=== PATIENT | male | born 1950 | race Caucasian/White ===

== ENCOUNTER 2019-03-03 17:30 | Inpatient (IN) | payer OTHER ==
[2019-03-03] MEDS ORDERED: SODIUM CHLORIDE 500 ML IV STA (18:10)
[2019-03-03 18:58] LABS: BASO % 1.1 % (0-2.0); EOS % 2.2 % (0-4.5); HEMATOCRIT 50.1 % (35.4-49); HEMOGLOBIN 16.7 GM/dl (11.7-16.9); LYMPH % 22.4 % (8-40); MCH 30.6 pg (25.7-33.7); MCHC 33.3 g/dl (32.0-35.9); MEAN CELL VOLUME 92.1 fl (80-96); MONO % 6.7 % (3.8-10.2); NEUT % 67.6 % (42.8-82.8); PLATELET COUNT 200 K/MM3 (134-434); RBC 5.44 M/mm3 (4.00-5.60); RDW 12.7 % (11.9-15.9); WHITE BLOOD COUNT 8.9 K/mm3 (4.0-10.8)
--- NOTE | 2019-03-03 19:01 | PDOC ---
Documentation entered by Clarence Escobedo SCRIBE, acting as scribe for Kamala Mancuso DO. Kamala Mancuso DO: This documentation has been prepared by the Gregg hillman Daniel, SCRIBE, under my direction and personally reviewed by me in its entirety. I confirm that the documentation accurately reflects all work, treatment, procedures, and medical decision making performed by me. History of Present Illness - General Stated Complaint: FEELS GAIT UNSTEADY History Source: Patient Exam Limitations: No Limitations - History of Present Illness Initial Comments: 03/03/19 18:14 The patient is a 68 year old male with a past medical history of HTN and HLD here today for evaluation of unsteady gait. The patient reports that he has had an unsteady gait for about 1 day and notes that when he went to get out of a chair yesterday he was leaning to the right. He reports that he fell this morning after missing a step and landed on his side without hitting his head. The patient saw Dr. Allen today who sent him down to the ER for further evaluation. Patient denies headache, lightheadedness. Denies fever, chills. Denies chest pain, shortness of breath. Denies nausea, vomiting, diarrhea, abdominal pain. Allergies: NKA PCP: Alfonso Vidal tPA Exclusion checklist 3-4.5h - Time Elapsed Date last known well: 03/02/19 Time last known well: 07:00 Elaspsed time: 1 Day(s) and 12 Hour(s) and 1 Minutes - Thrombolytic Therapy Candidate Is patient eligible for thrombolytic therapy: No - Ineligibility reason(s) Reasons No tPA given: Outside of window - delayed arrival (24 hours of symptoms) NIH Stroke Scale - Last Known Well Date/Time & Onset Date Last Known Well: 03/02/19 Time Last Known Well: 07:00 - Initial Evaluation Level of consciousness: Alert Ask patient the month and their age: Answers both correctly Ask patient to open & close eyes; make fist and let go: Obeys both correctly Best gaze (horizontal eye movement): Normal Visual field testing: No visual field loss Facial paresis (Show teeth/raise eyebrows/close eyes tight): Normal symmetrical movement Motor Function: Left Arm: Normal Motor Function: Right Arm: Drift Motor Function: Left Leg: Normal (extends leg 30 degrees for 5 seconds without drift) Motor Function: Right Leg: Normal (extends leg 30 degrees for 5 seconds without drift) Limb Ataxia: Present in one limb Sensory(Use pinprick test arms,legs,trunk,face/side to side): Normal Best language (Describe picture, name items, read sentences): No Aphasia Dysarthria (read several words): Normal articulation Extinction and Inattention: No abnormality - Total Score NIH Stroke Scale Score: 2 Past History - Past Medical History Allergies/Adverse Reactions: Allergies Allergy/AdvReac Type Severity Reaction Status Date / Time No Known Allergies Allergy Verified 03/03/19 17:32 Home Medications: Ambulatory Orders NK [No Known Home Medication] 03/03/19 Anemia: No Asthma: No Cancer: No Cardiac Disorders: No CVA: No COPD: No CHF: No Dementia: No Diabetes: No GI Disorders: No Disorders: No HTN: No Hypercholesterolemia: No Liver Disease: No Seizures: No Thyroid Disease: No - Surgical History Abdominal Surgery: Yes Appendectomy: Yes Cardiac Surgery: No Cholecystectomy: No Lung Surgery: No Neurologic Surgery: No Orthopedic Surgery: No - Psycho Social/Smoking Cessation Hx Smoking Status: No Smoking History: Never smoked Have you smoked in the past 12 months: No Number of Cigarettes Smoked Daily: 0 Hx Alcohol Use: Yes (RARE) Drug/Substance Use Hx: No Substance Use Type: Alcohol Hx Substance Use Treatment: No Review of Systems - Review of Systems Able to Perform ROS?: Yes Comments:: 03/03/19 18:15 GENERAL/CONSTITUTIONAL: No fever or chills. No weakness. HEAD, EYES, EARS, NOSE AND THROAT: No change in vision. No ear pain or discharge. No sore throat. GASTROINTESTINAL: No nausea, vomiting, diarrhea or constipation. GENITOURINARY: No dysuria, frequency, or change in urination. CARDIOVASCULAR: No chest pain or shortness of breath. RESPIRATORY: No cough, wheezing, or hemoptysis. MUSCULOSKELETAL: No joint or muscle swelling or pain. No neck or back pain. SKIN: No rash NEUROLOGIC: +unsteady gait. No headache, vertigo, loss of consciousness, or change in strength/sensation. ENDOCRINE: No increased thirst. No abnormal weight change. HEMATOLOGIC/LYMPHATIC: No anemia, easy bleeding, or history of blood clots. ALLERGIC/IMMUNOLOGIC: No hives or skin allergy. *Physical Exam - Vital Signs Last Vital Signs Temp Pulse Resp BP Pulse Ox 97.9 F 62 18 189/87 H 99 03/03/19 17:30 03/03/19 17:30 03/03/19 17:30 03/03/19 17:30 03/03/19 17:30 - Physical Exam 03/03/19 18:16 Constitutional: Awake, alert, oriented. No acute distress. Head: Normocephalic. Atraumatic Eyes: PERRL. EOMI. Conjunctivae are not pale. ENT: Mucous membranes are moist and intact. Posterior pharynx without exudates or erythema. Uvula midline. Neck: Supple. Full ROM. No lymphadenopathy. Cardiovascular: Regular rate. Regular rhythm. S1, S2 regular. Distal pulses are 2+ and symmetric. Pulmonary/Chest: No evidence of respiratory distress. Clear to auscultation bilaterally No wheezing, rales or rhonchi. Abdominal: Soft and non-distended. There is no tenderness. No rebound, guarding or rigidity. No organomegaly. No palpable masses. Good bowel sounds. Back: No CVA tenderness. Musculoskeletal: No edema. No cyanosis. No clubbing. Full range of motion in all extremities. Nocalf tenderness. Radial/pedal pulses are intact and 2+ bilaterally Skin: Skin is warm and dry. No petechiae. No purpura. Neurological: +unsteady right finger to nose. +shuffling gait on right side. + slight right hand weakness but rest of right upper extremity has normal strength. Normal heel to prieto. Alert and oriented to person, place, and time. Cranial nerves II-XII are grossly intact. Normal speech. No sensory deficits. Psychiatric: Good eye contact. Normal interaction, affect and behavior. Heart Score/ECG Review - ECG Intrepretation Comment:: 03/03/19 18:55 sinus at 60, lvh, incomplete RBBB, poor r wave progression, q waves anteroseptally which are age indeterminate, q waves inferior leads which are age indeterminate, unchanged from prior ED Treatment Course - LABORATORY CBC & Chemistry Diagram: 03/03/19 18:30 - RADIOLOGY Radiology Studies Ordered: Category Date Time Status HEAD CT (STROKE) [CT] Stat CT Scan 03/03/19 18:11 Completed CHEST PA & LAT [RAD] Stat Radiology 03/03/19 18:10 Ordered Medical Decision Making - Medical Decision Making 03/03/19 18:56 I, Dr. Kamala Mancuso, DO, attest that this document has been prepared under my direction and personally reviewed by me in its entirety. I further attest, that it accurately reflects all work, treatment, procedures and medical decision -making performed by me. a/p: 68yo male with hx of htn, hld, bph, ibs presents with 24 hours of feeling off balance when walking -pt states leaning towards the Right yesterday when walking, brushing his arm along the wall -coordination off today -seen by Dr. Allen and sent in for poss cva -pt denies cp/sob -pt with R hand weakness, R arm uncoordinated, abnl finger to nose, and abnl gait, shuffles with the R foot -will send for ct head, cva workup -pt will need to be admitted for neuro eval and MRI imaging if head ct neg -no tpa given delay in presentation 03/03/19 19:[address] neg will call neuro labs pending case discussed with cristiano trejo - accepts pt to service for cva workup 03/03/19 19:[address] George who agrees with ASA, MRI brain, echo, cva workup Discharge - Discharge Information Problems reviewed: Yes Clinical Impression/Diagnosis: Limb ataxia Condition: Fair - Admission Yes - Follow up/Referral Referrals: Alfonso Vidal MD [Primary Care Provider] - - Patient Discharge Instructions - Post Discharge Activity
[2019-03-03] MEDS ORDERED: ASPIRIN 81 MG CHEWABLE TABLETS PO ONE (19:07)
[2019-03-03] MEDS ORDERED: ASPIRIN 81 MG CHEWABLE TABLETS ONE (19:10)
[2019-03-03 19:13] LABS: ACTIVATED PTT 35.3 SECONDS (25.2-36.5)
[2019-03-03 19:17] LABS: ALBUMIN 4.2 g/dl (3.4-5.0); BILIRUBIN,TOTAL 1.3 mg/dl (0.2-1); CALCIUM 9.3 mg/dl (8.5-10); MAGNESIUM 2.1 mg/dL (1.8-2.4); POTASSIUM 4.2 mmol/L (3.5-5.1); TOT PROT 7.4 g/dl (6.4-8.2)
[2019-03-03 19:18] LABS: INR 1.15 (0.82-1.09); PROTHROMBIN TIME (PATIENT) 12.8 SEC (10.2-13.0)
[2019-03-03 19:21] LABS: CHOLESTEROL 199 mg/dl (50-200); HDL CHOLESTEROL 47 mg/dl (40-60); LDL CHOLESTEROL (ONLY DFH) 138 mg/dl (5-100); TRIGLYCERIDES 70 mg/dl (0-150)
--- NOTE | 2019-03-03 20:06 | HP ---
CHIEF COMPLAINT: Unsteady gait PCP: Dr. Giraldo (previously Outen) HISTORY OF PRESENT ILLNESS: 68 year-old male with a PMH significant for HTN, HLD, IBS, and BPH. Presented to the ED for evaluation of unsteady gait. Patient reports his first episode of being unsteady was in November. He felt dizzy for a short period of time, cannot give any further details. The second episode was on February 22 when he was walking his dog. The dog pulled on him and he was unable to control his walking. The third episode started two days ago. He was unsteady walking, leaning toward the right, brushing up against the wall. Today he went to see Dr. Tiffany ontiveros who referred him to the ED. ER course was notable for: (1) BP 189/87 (2) CT head: no acute process Recent Travel: No PAST MEDICAL HISTORY: Hypertension Hyperlipidemia Irritable bowel syndrome BPH PAST SURGICAL HISTORY: Appendectomy 2011 Social History: Smoking: never Alcohol: rare Drugs: no Allergies No Known Allergies Allergy (Verified 03/03/19 17:32) HOME MEDICATIONS: Home Medications Medication Instructions Recorded NK [No Known Home Medication] 03/03/19 REVIEW OF SYSTEMS CONSTITUTIONAL: Absent: fever, chills, diaphoresis, generalized weakness, malaise, loss of appetite, weight change HEENT: Absent: rhinorrhea, nasal congestion, throat pain, throat swelling, difficulty swallowing, mouth swelling, ear pain, eye pain, visual changes CARDIOVASCULAR: Absent: chest pain, syncope, palpitations, irregular heart rate, lightheadedness , peripheral edema RESPIRATORY: Absent: cough, shortness of breath, dyspnea with exertion, orthopnea, wheezing, stridor, hemoptysis GASTROINTESTINAL: Absent: abdominal pain, abdominal distension, nausea, vomiting, diarrhea, constipation, melena, hematochezia GENITOURINARY: Absent: dysuria, frequency, urgency, hesitancy, hematuria, flank pain, genital pain MUSCULOSKELETAL: Absent: myalgia, arthralgia, joint swelling, back pain, neck pain SKIN: Absent: rash, itching, pallor HEMATOLOGIC/IMMUNOLOGIC: Absent: easy bleeding, easy bruising, lymphadenopathy, frequent infections ENDOCRINE: Absent: unexplained weight gain, unexplained weight loss, heat intolerance, cold intolerance NEUROLOGIC: +unsteady gait Absent: headache, focal weakness or paresthesias, dizziness, seizure, mental status changes, bladder or bowel incontinence PSYCHIATRIC: Absent: anxiety, depression, suicidal or homicidal ideation, hallucinations. PHYSICAL EXAMINATION Vital Signs - 24 hr 03/03/19 03/03/19 17:30 18:59 Temperature 97.9 F Pulse Rate 62 Pulse Rate [ 58 L Left Apical] Respiratory 18 18 Rate Blood Pressure 189/87 H Blood Pressure 157/99 [Right Arm] O2 Sat by Pulse 99 99 Oximetry (%) GENERAL/NEURO: Awake, alert, and fully oriented, in no acute distress. Right facial droop, right lid lag, speech slightly slurred, right arm drift LUNGS: Breath sounds equal, clear to auscultation bilaterally. No wheezes, and no crackles. No accessory muscle use. HEART: Regular rate and rhythm, normal S1 and S2 UPPER EXTREMITIES: 2+ pulses, warm, well-perfused. No cyanosis. No clubbing. No peripheral edema. LOWER EXTREMITIES: 2+ pulses, warm, well-perfused. No calf tenderness. No peripheral edema. Laboratory Results - last 24 hr 03/03/19 03/03/19 03/03/19 18:30 18:30 18:30 WBC RBC Hgb Hct MCV MCH MCHC RDW Plt Count MPV Absolute Neuts (auto) Neutrophils % Lymphocytes % Monocytes % Eosinophils % Basophils % PT with INR INR PTT (Actin FS) Sodium 139 Potassium 4.2 Chloride 104 Carbon Dioxide 26 Anion Gap 9 BUN 19.0 H Creatinine 1.0 Est GFR (CKD-EPI)AfAm 88.61 Est GFR (CKD-EPI)NonAf 76.45 Random Glucose 98 Calcium 9.3 Magnesium 2.1 Total Bilirubin 1.3 H AST 23 ALT 20 Alkaline Phosphatase 68 Creatine Kinase 123 Troponin I < 0.03 Total Protein 7.4 Albumin 4.2 Triglycerides Cholesterol Total LDL Cholesterol HDL Cholesterol 03/03/19 03/03/19 03/03/19 18:30 18:30 18:30 WBC 8.9 RBC 5.44 Hgb 16.7 Hct 50.1 H MCV 92.1 MCH 30.6 MCHC 33.3 RDW 12.7 Plt Count 200 MPV 10.0 Absolute Neuts (auto) 6.0 Neutrophils % 67.6 Lymphocytes % 22.4 Monocytes % 6.7 Eosinophils % 2.2 Basophils % 1.1 PT with INR 12.8 INR 1.15 PTT (Actin FS) 35.3 Sodium Potassium Chloride Carbon Dioxide Anion Gap BUN Creatinine Est GFR (CKD-EPI)AfAm Est GFR (CKD-EPI)NonAf Random Glucose Calcium Magnesium Total Bilirubin AST ALT Alkaline Phosphatase Creatine Kinase Troponin I Total Protein Albumin Triglycerides 70 Cholesterol 199 Total LDL Cholesterol 138 H HDL Cholesterol 47 ASSESSMENT/PLAN: 68 year-old male with a PMH significant for HTN, HLD, IBS, and BPH. Admitted for suspected CVA. r/o CVA --03/03 CT head: no acute process; chronic small vessel ischemia --MRI brain ordered --ASA 325mg x 1 given in ED; continue daily --start atorvastatin 80mg daily --echo in am --US carotids --telemetry monitoring --neuro consult --troponin neg x 1, two pending --serial ECGs Hypertensive urgency --BP: 189/87 on admission --not on anti-hypertensives at home --permissive hypertension, avoid too rapid lowering --vital signs q4h FEN Fluids: PO intake adequate Electrolytes: replete as indicated Nutrition: low sodium DVT prophylaxis: subq lovenox Physical therapy Dispo: continues to require inpatient care. Full code. Visit type - Emergency Visit Emergency Visit: Yes ED Registration Date: 03/03/19 Care time: The patient presented to the Emergency Department on the above date and was hospitalized for further evaluation of their emergent condition. - New Patient This patient is new to me today: Yes Date on this admission: 03/04/19 - Critical Care Critical Care patient: No
[2019-03-03] MEDS ORDERED: ATORVASTATIN CA 80 MG TABLET (FP) PO ONE (20:08)
[2019-03-03] MEDS ORDERED: ATORVASTATIN CA 80 MG TABLET (FP) ONE (20:27)
[2019-03-03 22:27] VITALS: BMI 27.5
--- NOTE | 2019-03-04 06:42 | PN ---
Physical Exam: SUBJECTIVE: Patient seen and examined. OBJECTIVE: Vital Signs Period Temp Pulse Resp BP Sys/Ribeiro Pulse Ox Last 24 Hr 97.8 F-98.6 F 55-62 16-18 154-189/76-99 97-99 GENERAL/NEURO: Awake, alert, and fully oriented, in no acute distress. Right facial droop, right lid lag, speech slightly slurred, right arm drift, unsteady , ataxic gait. LUNGS: Breath sounds equal, clear to auscultation bilaterally. No wheezes, and no crackles. No accessory muscle use. HEART: Regular rate and rhythm, normal S1 and S2 UPPER EXTREMITIES: 2+ pulses, warm, well-perfused. No cyanosis. No clubbing. No peripheral edema. LOWER EXTREMITIES: 2+ pulses, warm, well-perfused. No calf tenderness. No peripheral edema. Laboratory Results - last 24 hr 03/03/19 03/03/19 03/03/19 18:30 18:30 18:30 WBC RBC Hgb Hct MCV MCH MCHC RDW Plt Count MPV Absolute Neuts (auto) Neutrophils % Lymphocytes % Monocytes % Eosinophils % Basophils % PT with INR INR PTT (Actin FS) Sodium 139 Potassium 4.2 Chloride 104 Carbon Dioxide 26 Anion Gap 9 BUN 19.0 H Creatinine 1.0 Est GFR (CKD-EPI)AfAm 88.61 Est GFR (CKD-EPI)NonAf 76.45 Random Glucose 98 Hemoglobin A1c % 5.8 Calcium 9.3 Magnesium 2.1 Total Bilirubin 1.3 H AST 23 ALT 20 Alkaline Phosphatase 68 Creatine Kinase Troponin I < 0.03 Total Protein 7.4 Albumin 4.2 Triglycerides Cholesterol Total LDL Cholesterol HDL Cholesterol TSH 1.04 03/03/19 03/03/19 03/03/19 18:30 18:30 18:30 WBC 8.9 RBC 5.44 Hgb 16.7 Hct 50.1 H MCV 92.1 MCH 30.6 MCHC 33.3 RDW 12.7 Plt Count 200 MPV 10.0 Absolute Neuts (auto) 6.0 Neutrophils % 67.6 Lymphocytes % 22.4 Monocytes % 6.7 Eosinophils % 2.2 Basophils % 1.1 PT with INR INR PTT (Actin FS) Sodium Potassium Chloride Carbon Dioxide Anion Gap BUN Creatinine Est GFR (CKD-EPI)AfAm Est GFR (CKD-EPI)NonAf Random Glucose Hemoglobin A1c % Calcium Magnesium Total Bilirubin AST ALT Alkaline Phosphatase Creatine Kinase 123 Troponin I Total Protein Albumin Triglycerides 70 Cholesterol 199 Total LDL Cholesterol 138 H HDL Cholesterol 47 TSH 03/03/19 03/04/19 18:30 00:30 WBC RBC Hgb Hct MCV MCH MCHC RDW Plt Count MPV Absolute Neuts (auto) Neutrophils % Lymphocytes % Monocytes % Eosinophils % Basophils % PT with INR 12.8 INR 1.15 PTT (Actin FS) 35.3 Sodium Potassium Chloride Carbon Dioxide Anion Gap BUN Creatinine Est GFR (CKD-EPI)AfAm Est GFR (CKD-EPI)NonAf Random Glucose Hemoglobin A1c % Calcium Magnesium Total Bilirubin AST ALT Alkaline Phosphatase Creatine Kinase 95 Troponin I < 0.02 Total Protein Albumin Triglycerides Cholesterol Total LDL Cholesterol HDL Cholesterol TSH Active Medications Generic Name Dose Route Start Last Admin Trade Name Freq PRN Reason Stop Dose Admin Aspirin 325 mg 03/04/19 10:00 Asa - PO DAILY TALYA Atorvastatin Calcium 80 mg 03/04/19 22:00 Lipitor - PO HS TALYA Enoxaparin Sodium 40 mg 03/04/19 10:00 Lovenox - SQ DAILY TALYA ASSESSMENT/PLAN: 68 year-old male with a PMH significant for HTN, HLD, IBS, and BPH. Admitted for acute CVA. r/o CVA --03/04 MRI brain: acute ischemic changes posterior aspect of left mota radiata; 2 subacute infarcts left posterior temporal lobe; chronic lacunar infarct; chronic microbleed left posterior periventricular white matter --US carotids: no hemodynamically significant stenosis --continue ASA, statin --neuro following --ECG: sinus rhythm, no known history of afib; daily ECGs; telemetry monitoring --troponin neg x 2 --Echo pending --cardiology consult requested --telemetry monitoring Hypertension --BP 180s/90s; had been recommended in past by PCP to be on anti- hypertensives, patient non-compliant --start lisinorpil 5mg daily --avoid too rapid lowering --vital signs q4h Hyperlipidemia --not previously on statin therapy, now on high dose atorvastatin IBS --no acute issues BPH --no acute issues FEN Fluids: PO intake adequate Electrolytes: replete as indicated Nutrition: low sodium DVT prophylaxis: subq lovenox Physical therapy Dispo: continues to require inpatient care. Full code. Visit type - Emergency Visit Emergency Visit: Yes ED Registration Date: 03/03/19 Care time: The patient presented to the Emergency Department on the above date and was hospitalized for further evaluation of their emergent condition. - New Patient This patient is new to me today: No - Critical Care Critical Care patient: No
--- NOTE | 2019-03-04 09:07 | EKG ---
Test Reason : Blood Pressure : / mmHG Vent. Rate : 060 BPM Atrial Rate : 060 BPM P-R Int : 154 ms QRS Dur : 108 ms QT Int : 442 ms P-R-T Axes : 038 -17 061 degrees QTc Int : 442 ms NORMAL SINUS RHYTHM POSSIBLE LEFT ATRIAL ENLARGEMENT INCOMPLETE RIGHT BUNDLE BRANCH BLOCK LEFT VENTRICULAR HYPERTROPHY ABNORMAL ECG NO PREVIOUS ECGS AVAILABLE Confirmed by Victor Manuel Zheng MD ([id number]) on 03/04/2019 9:07:28 AM Referred By: Confirmed By:Victor Manuel Zheng MD
[2019-03-04 09:10] LABS: ALBUMIN 3.8 g/dl (3.4-5.0); BILIRUBIN,TOTAL 1.4 mg/dl (0.2-1); CALCIUM 8.7 mg/dl (8.5-10); CREATININE 1.1 mg/dl (0.55-1.3); MAGNESIUM 1.9 mg/dL (1.8-2.4); POTASSIUM 3.6 mmol/L (3.5-5.1)
--- NOTE | 2019-03-04 10:36 | CON.NEURO ---
Consult - Alcohol/Substance Use Hx Alcohol Use: No - Smoking History Smoking history: Never smoked Have you smoked in the past 12 months: No Aproximately how many cigarettes per day: 0 Home Medications - Allergies Allergies/Adverse Reactions: Allergies Allergy/AdvReac Type Severity Reaction Status Date / Time No Known Allergies Allergy Verified 03/03/19 17:32 - Home Medications Home Medications: Ambulatory Orders NK [No Known Home Medication] 03/03/19 Physical Exam-Neuro Vital Signs: Vital Signs Temperature 98.6 F 03/04/19 04:00 Pulse Rate 55 L 03/04/19 04:00 Respiratory Rate 18 03/04/19 04:00 Blood Pressure 154/82 03/04/19 04:00 O2 Sat by Pulse Oximetry (%) 97 03/04/19 04:00 Labs: CBC, BMP 03/03/19 18:30 03/04/19 07:28 INR, PTT INR 1.15 (0.82-1.09) 03/03/19 18:30 Assessment/Plan cc Episodic dizziness HPI 68 year old male history of HTN,HLD,IBS,BPH. Carolynn has unstready gait episode three times so far. First time november, than in february 22 and third time in march 03. which lead him to come to ed. Patient describes as unsteady walking and bumping into things. Patinet was moving to right. He denies nay stroke in past or [place] in past. He denies any focal neurological symptoms. His bp was high and he is feeling better now. PAST MEDICAL HISTORY: Hypertension Hyperlipidemia Irritable bowel syndrome BPH PAST SURGICAL HISTORY: Appendectomy 2011 Social History: Smoking: never Alcohol: rare Drugs: no Allergies No Known Allergies Allergy (Verified 03/03/19 17:32) HOME MEDICATIONS: Home Medications Medication Instructions Recorded NK [No Known Home Medication] 03/03/19 ROS,FH, SH reviewed in chart NEUROLOGICAL EXAMINATION Alert oriented x 3, speech i snormal, neck is supple eomi, pupils , no face asymmetry, there is no nystagmus was seen ftn , hts is normal 5/5 all ext sensation is normal ct head unremarkable carotid ultrasound is normal mri of brain pending Assessment/Plan intermittent dysbalance, normal neuro exam and normal ct head , likely to be vestibular dysfunction, rule out stroke Plan: rule out stroke, mri ofbrain is pending work up has been negative continue aspirin and statin once mri of brain is negative he can be discharged and he may need vestibular rehab unlikley to be post circulation tia in abscence of other symptoms Thanking you so much Kory Sofia MD
[2019-03-04] MEDS: ENOXAPARIN NA (PORCINE) 40 MG/0.4 ML DISP.SYRIN SQ SCH (11:57)
[2019-03-04] MEDS: ASPIRIN 325 MG TABLET PO SCH (11:57)
[2019-03-04] MEDS ORDERED: LISINOPRIL 5 MG TABLET (FP) PO SCH (13:30)
--- NOTE | 2019-03-04 14:38 | CON.CARD ---
Consult Consult Specialty:: Cardiology Referred by:: Dr. Butler Reason for Consultation:: CVA - History of Present Illness Chief Complaint: Unsteady gait History of Present Illness: 68 year-old male with a PMH significant for HTN, HLD, IBS, and BPH. Presented to the ED for evaluation of unsteady gait. Patient reports his first episode of being unsteady was in November. He felt dizzy for a short period of time, cannot give any further details. The second episode was on February 22 when he was walking his dog. The dog pulled on him and he was unable to control his walking. The third episode started two days ago. He was unsteady walking, leaning toward the right, brushing up against the wall. Sent to ER by PMD. MRI brain shows acute CVA left mota radiata. On my hx, he denies CP, palpitations, exertional dyspnea, syncope. No PND/ orthopnea. - History Source History Provided By: Patient, Medical Record - Past Medical History CATH LAB RADIOLOGICAL TECHNOLOGIST: No: Alzheimer's, CVA, Dementia, Migraine, Multiple Sclerosis, Peripheral Neuropathy, Parkinson's, Seizure, Syncope, TIA, Vertigo, Other Cardio/Vascular: Yes: HTN, Hyperlipdemia Pulmonary: No: Asthma, Bronchitis, Cancer, COPD, O2 Dependent, Pneumonia, Previously Intubated, Pulmonary Embolus, Pulmonary Fibrosis, Sleep Apnea, Other Gastrointestinal: Yes: Irritable Bowel Disease, Other Hepatobiliary: No: Cirrhosis, Cholelithiasis, Cholecystitis, Choledocholithiasis , Hepatitis A, Hepatitis B, Hepatitis C, Other Renal/: Yes: BPH Heme/Onc: No: Anemia, B12 Deficiency, Bleeding Disorder, Cancer, Current Chemotherapy, Current Radiation Therapy, Hemochromatosis, Hypercoaguable State, Myeloproliferative Synd, Sickle Cell Disease, Sickle Cell Trait, Thrombocytopenia, Other Infectious Disease: No: AIDS, C-Diff, Herpes Zoster, HIV, MRSA, STD's, Tuberculosis, VREF, Other Psych: No: Addictions, Anxiety, Bipolar, Depression, Panic, Psychosis, Schizophrenia, Other Musculoskeletal: No: Bursitis, Chronic low back pain, Hemiparesis, Hemiplegia, Osteoarthritis, Paraplegia, Other Rheumatology: No: Fibromyalgia, Gout, Lupus, Rheumatoid Arthritis, Sarcoidosis, Vasculitis, Other ENT: No: Allergic Rhinitis, Sinusitis, Other Endocrine: No: Abraham's Disease, [place]'s Disease, Diabetes Insipidus, Diabetes Mellitus, Hyperparathyroidism, Hyperthyroidism, Hypothyroidism, Osteopenia, SIADH, Other Dermatology: No: Basal Cell, Cellulitis, Eczema, Melanoma, Psoriasis, Squamous Cell, Other - Past Surgical History Additional Surgical History: hernia, knee surgery - Alcohol/Substance Use Hx Alcohol Use: No - Smoking History Smoking history: Never smoked Have you smoked in the past 12 months: No Aproximately how many cigarettes per day: 0 - Social History History of Recent Travel: No Home Medications - Allergies Allergies/Adverse Reactions: Allergies Allergy/AdvReac Type Severity Reaction Status Date / Time No Known Allergies Allergy Verified 03/03/19 17:32 - Home Medications Home Medications: Ambulatory Orders NK [No Known Home Medication] 03/03/19 Family Medical History Family History: Unremarkable (no early CAD or SCD) Review of Systems Findings/Remarks: see HPI - Review of Systems Constitutional: reports: No Symptoms Eyes: reports: No Symptoms HENT: reports: No Symptoms Neck: reports: No Symptoms Cardiovascular: reports: No Symptoms Respiratory: reports: No Symptoms Gastrointestinal: reports: No Symptoms Genitourinary: reports: No Symptoms Neurological: reports: Incoordination, Unsteady Gait Endocrine: denies: No Symptoms, Excessive Sweating, Flushing, Increased Hunger, Increased Thirst, Intolerance to Cold, Intolerance to Heat, Unexplained Weight Gain, Unexplained Weight Loss, Other Hematology/Lymphatic: denies: No Symptoms, Easily Bruised, Excessive Bleeding, Swollen Glands, Other Psychiatric: denies: No Symptoms, Altered Sleep Pattern, Anxiety, Depression, Hallucinations, Panic, Paranoia, Suicidal, Other - Risk Factors Known Risk Factors: Yes: Hypercholesterolemia, Hypertension Vital Signs: Vital Signs Temperature 98.4 F 03/04/19 10:00 Pulse Rate 57 L 03/04/19 10:00 Respiratory Rate 03/04/19 10:00 Blood Pressure 170/100 03/04/19 12:30 O2 Sat by Pulse Oximetry (%) 98 03/04/19 11:00 Constitutional: Yes: No Distress Eyes: Yes: Conjunctiva Clear Neck: Yes: Trachea Midline Respiratory: Yes: CTA Bilaterally Gastrointestinal: Yes: Soft JVD: No Carotid Bruit: No PMI: Non-Displaced Heart Sounds: Yes: S1, S2 (rrr) Edema: No Peripheral Pulses WNL: Yes Neurological: Yes: Weakness (Right sided weakness) - Other Data Labs, Other Data: CBC, BMP 03/03/19 18:30 03/04/19 07:28 INR, PTT INR 1.15 (0.82-1.09) 03/03/19 18:30 Troponin, BNP 03/03/19 03/04/19 18:30 00:30 Troponin I < 0.03 < 0.02 Troponin, BNP 03/03/19 03/04/19 18:30 00:30 Troponin I < 0.03 < 0.02 Laboratory Tests 03/03/19 03/03/19 03/03/19 18:30 18:30 18:30 WBC Hgb Plt Count INR PTT (Actin FS) Sodium Potassium BUN Creatinine Hemoglobin A1c % 5.8 Total Bilirubin ALT Alkaline Phosphatase Creatine Kinase 123 Troponin I < 0.03 Total Protein Albumin Total LDL Cholesterol 03/03/19 03/03/19 03/03/19 18:30 18:30 18:30 WBC 8.9 Hgb 16.7 Plt Count 200 INR 1.15 PTT (Actin FS) 35.3 Sodium Potassium BUN Creatinine Hemoglobin A1c % Total Bilirubin ALT Alkaline Phosphatase Creatine Kinase Troponin I Total Protein Albumin Total LDL Cholesterol 138 H 03/04/19 03/04/19 00:30 07:28 WBC Hgb Plt Count INR PTT (Actin FS) Sodium 135 L Potassium 3.6 BUN 18.0 Creatinine 1.1 Hemoglobin A1c % Total Bilirubin 1.4 H ALT 19 Alkaline Phosphatase 68 Creatine Kinase 95 Troponin I < 0.02 Total Protein 7.0 Albumin 3.8 Total LDL Cholesterol NSR, LAE, LVH, RBBB Echo: Pending Imaging - Results Cat Scan: Report Reviewed MRI: Report Reviewed EKG: Image Reviewed Assessment/Plan IMP: Gait instability due to acute CVA Chronic HTN HLD REC: 1. Tele x 48 hours; outpatient extended rhythm monitor would be beneficial 2. Echo pending. 3. Cont ASA, high intensity statin for LDL goal 70mg/dl 4. BP parameters as per Neuro: started on Lisinopril.
--- NOTE | 2019-03-04 15:03 | ECHO ---
Name: ROSA MORGAN Exam:Adult Echocardiogram Study Date: 03/04/2019 02:09 PM Age: 68 yrs Reason For Study: TIA Height: 70 in Weight: 192 lb BSA: 2.1 m2 MMode/2D Measurements & Calculations IVSd: 1.3 cm Ao root diam: 3.9 cm LVIDd: 5.4 cm LA dimension: 4.5 cm LVIDs: 4.1 cm LVPWd: 1.2 cm EDV(Teich): 143.3 ml LVOT diam: 2.0 cm ESV(Teich): 72.2 ml Doppler Measurements & Calculations MV E max guerrero: 48.0 cm/sec MV A max guerrero: 105.0 cm/sec MV dec slope: 122.2 cm/sec2 MV E/A: 0.46 Ao V2 max: 128.2 cm/sec LV V1 max P.1 mmHg Ao max P.6 mmHg LV V1 max: 101.4 cm/sec SHANNAN(V,D): 2.5 cm2 MR max guerrero: 365.5 cm/sec PA V2 max: 69.4 cm/sec MR max P.5 mmHg PA max P.9 mmHg PI end-d guerrero: 75.9 cm/sec Procedure A two-dimensional transthoracic echocardiogram with color flow and Doppler was performed. The patient was in normal sinus rhythm during the exam. Left Ventricle The left ventricle is normal in size. There is mild concentric left ventricular hypertrophy. Ejection Fraction = 45%. Left ventricular systolic function is mildly reduced. Grade I diastolic dysfunction, (abnormal relaxation pattern). There is mild global hypokinesis of the left ventricle. Right Ventricle The right ventricle is not well visualized. Atria The left atrium is moderately dilated. Right atrium not well visualized. Mitral Valve The mitral valve is grossly normal. There is mild mitral regurgitation. Tricuspid Valve The tricuspid valve is not well visualized, but is grossly normal. There is trace tricuspid regurgita tion. There was insufficient TR detected to calculate RV systolic pressure. Aortic Valve The aortic valve is trileaflet. Moderate aortic regurgitation. There is an eccentric jet of aortic insufficiency directed against the anterior mitral leaflet. Pulmonic Valve The pulmonic valve is not well visualized. Trace pulmonic valvular regurgitation. Great Vessels Mild aortic root dilatation. Pericardium/Pleura There is no pericardial effusion. Interpretation Summary The left ventricle is normal in size. There is mild concentric left ventricular hypertrophy. Left ventricular systolic function is mildly reduced. There is mild global hypokinesis of the left ventricle. Grade I diastolic dysfunction, (abnormal relaxation pattern). The right ventricle is not well visualized. The left atrium is moderately dilated. There is mild mitral regurgitation. There is trace tricuspid regurgitation. There was insufficient TR detected to calculate RV systolic pressure. Mild aortic root dilatation. The aortic valve is trileaflet. Moderate aortic regurgitation. There is an eccentric jet of aortic insufficiency directed against the anterior mitral leaflet. MD Emmett Goff 03/04/2019 03:02 PM
[2019-03-04] MEDS: ATORVASTATIN CA 80 MG TABLET (FP) PO SCH (21:22)
[2019-03-05] MEDS: LISINOPRIL 10 MG TABLET (FP) PO SCH (09:36)
[2019-03-05] MEDS: ENOXAPARIN NA (PORCINE) 40 MG/0.4 ML DISP.SYRIN SQ SCH (09:36)
[2019-03-05] MEDS: ASPIRIN 325 MG TABLET PO SCH (09:36)
[2019-03-05 14:09] LABS: CREATININE 1.1 mg/dl (0.55-1.3); MAGNESIUM 2.2 mg/dL (1.8-2.4); POTASSIUM 3.8 mmol/L (3.5-5.1)
--- NOTE | 2019-03-05 14:26 | EKG ---
Test Reason : Blood Pressure : / mmHG Vent. Rate : 065 BPM Atrial Rate : 065 BPM P-R Int : 152 ms QRS Dur : 102 ms QT Int : 414 ms P-R-T Axes : 053 -12 064 degrees QTc Int : 430 ms NORMAL SINUS RHYTHM POSSIBLE LEFT ATRIAL ENLARGEMENT INCOMPLETE RIGHT BUNDLE BRANCH BLOCK INFERIOR INFARCT , AGE UNDETERMINED ANTERIOR INFARCT , AGE UNDETERMINED ABNORMAL ECG WHEN COMPARED WITH ECG OF 03-MAR-2019 18:46, NO SIGNIFICANT CHANGE WAS FOUND Confirmed by COOPER CEE MD ([id number]) on 03/05/2019 2:25:50 PM Referred By: Confirmed By:COOPER CEE MD
--- NOTE | 2019-03-05 16:16 | PN ---
Progress Note (short form) - Note Progress Note: s: no cp sob palps dizzy Current Medications Generic Name Dose Route Start Last Admin Trade Name Thu PRN Reason Stop Dose Admin Aspirin 325 mg 03/04/19 10:00 03/05/19 09:36 Asa - PO 325 mg DAILY TALYA Administration Atorvastatin Calcium 80 mg 03/04/19 22:00 03/04/19 21:22 Lipitor - PO 80 mg HS TALYA Administration Enoxaparin Sodium 40 mg 03/04/19 10:00 03/05/19 09:36 Lovenox - SQ 40 mg DAILY TALYA Administration Lisinopril 10 mg 03/05/19 08:54 03/05/19 09:36 Prinivil PO 10 mg DAILY TALYA Administration Vital Signs Period Temp Pulse Resp BP Sys/Ribeiro Pulse Ox Last 24 Hr 98.2 F-98.9 F 63-86 17-18 147-164/90-95 95-96 Constitutional: Yes: No Distress Eyes: Yes: Conjunctiva Clear Neck: Yes: Trachea Midline Respiratory: Yes: CTA Bilaterally Gastrointestinal: Yes: Soft JVD: No Carotid Bruit: No PMI: Non-Displaced Heart Sounds: Yes: S1, S2 (rrr) Edema: No Peripheral Pulses WNL: Yes Neurological: Yes: Weakness (Right sided weakness) CBC, BMP 03/03/19 18:30 03/05/19 13:30 tele: sr, artifact, no vt, vf, or asystole echo 02/2019: lvh, mild dec lvef, global hk, rv tds, mild mr, mild ao root dil, mod ar carotids 02/2019: no sig stenosis Assessment/Plan IMP: Gait instability due to acute CVA Chronic HTN HLD REC: 1. Tele reviewed, there was artifact present, no vt/vf/asystole occurred. Cont tele while here given acute cva. outpatient extended rhythm monitor would be beneficial 2. Echo was TDS, showed mildly reduced LVEF, possibly related to acute cva. Would check better quality echo as outpt during office f/u. 3. Cont ASA, high intensity statin for LDL goal 70mg/dl 4. BP parameters as per Neuro: started on Lisinopril.
--- NOTE | 2019-03-05 20:48 | PN ---
Physical Exam: SUBJECTIVE: Patient seen and examined OBJECTIVE: Vital Signs Period Temp Pulse Resp BP Sys/Ribeiro Pulse Ox Last 24 Hr 98.2 F-98.9 F 63-86 17-18 147-160/90-95 95 GENERAL/NEURO: Awake, alert, and fully oriented, in no acute distress. Right facial droop, right lid lag, speech slightly slurred persist. RUE and RLE weakness. LUNGS: Breath sounds equal, clear to auscultation bilaterally. No wheezes, and no crackles. No accessory muscle use. HEART: Regular rate and rhythm, normal S1 and S2 UPPER EXTREMITIES: 2+ pulses, warm, well-perfused. No cyanosis. No clubbing. No peripheral edema. LOWER EXTREMITIES: 2+ pulses, warm, well-perfused. No calf tenderness. No peripheral edema. Laboratory Results - last 24 hr 03/05/19 03/05/19 03/05/19 13:30 13:30 16:35 Sodium 137 Potassium 3.8 Chloride 105 Carbon Dioxide 27 Anion Gap 5 L BUN 20.0 H Creatinine 1.1 Est GFR (CKD-EPI)AfAm 78.97 Est GFR (CKD-EPI)NonAf 68.13 Random Glucose 123 H Calcium 9.0 Magnesium 2.2 Troponin I Cancelled < 0.03 < 0.03 Active Medications Generic Name Dose Route Start Last Admin Trade Name Freq PRN Reason Stop Dose Admin Aspirin 325 mg 03/04/19 10:00 03/05/19 09:36 Asa - PO 325 mg DAILY TALYA Administration Atorvastatin Calcium 80 mg 03/04/19 22:00 03/04/19 21:22 Lipitor - PO 80 mg HS TALYA Administration Enoxaparin Sodium 40 mg 03/04/19 10:00 03/05/19 09:36 Lovenox - SQ 40 mg DAILY TALYA Administration Lisinopril 10 mg 03/05/19 08:54 03/05/19 09:36 Prinivil PO 10 mg DAILY TALYA Administration ASSESSMENT/PLAN 68 year-old male with a PMH significant for HTN, HLD, IBS, and BPH. Admitted for acute CVA. r/o CVA --03/04 MRI brain: acute ischemic changes posterior aspect of left mota radiata; 2 subacute infarcts left posterior temporal lobe; chronic lacunar infarct; chronic microbleed left posterior periventricular white matter --US carotids: no hemodynamically significant stenosis --continue ASA, statin --ECG: sinus rhythm, no known history of afib; daily ECGs; telemetry monitoring; seen and evaluated by cardiology, outpatient extended rhythm monitoring would be beneficial; discussed with patient --continue telemetry --with significant right-sided upper and lower extremity deficits, will need rehab Systolic and diastolic heart failure --03/04 Echo: mild LVH, LV systolic function mildly reduced EF 45%, diastolic dysfunction abnormal relaxation, mild global hypokinesis; RV not well seen; LAE; mild MR, trace TR, moderate AI, trace PI, mild aortic root dilitation --appears euvolemic --no diuretics Hypertension --BP continues to be elevated, increase lisinopril 5mg to 10mg daily --TSH wnl Hyperlipidemia --continue atorvastatin IBS --no acute issues BPH --no acute issues FEN Fluids: PO intake adequate Electrolytes: replete as indicated Nutrition: low sodium DVT prophylaxis: subq lovenox Physical therapy Dispo: continues to require inpatient care. Discharge planning for rehab in progress. Full code. Visit type - Emergency Visit Emergency Visit: Yes ED Registration Date: 03/03/19 Care time: The patient presented to the Emergency Department on the above date and was hospitalized for further evaluation of their emergent condition. - New Patient This patient is new to me today: No - Critical Care Critical Care patient: No
[2019-03-05] MEDS: ATORVASTATIN CA 80 MG TABLET (FP) PO SCH (22:07)
[2019-03-06] MEDS: ENOXAPARIN NA (PORCINE) 40 MG/0.4 ML DISP.SYRIN SQ SCH (09:06)
[2019-03-06] MEDS: LISINOPRIL 10 MG TABLET (FP) PO SCH (09:06)
[2019-03-06] MEDS: ASPIRIN 325 MG TABLET PO SCH (09:06)
--- NOTE | 2019-03-06 16:43 | PN ---
Physical Exam: SUBJECTIVE: Patient seen and examined oob to chair. and daughter present. OBJECTIVE: Vital Signs Period Temp Pulse Resp BP Sys/Ribeiro Pulse Ox Last 24 Hr 97.7 F-99.2 F 57-75 16-20 137-170/74-91 95-96 GENERAL/NEURO: Awake, alert, and fully oriented, in no acute distress. Right facial droop and right lid lag improved. RUE and RLE weakness persist. LUNGS: Breath sounds equal, clear to auscultation bilaterally. No wheezes, and no crackles. No accessory muscle use. HEART: Regular rate and rhythm, normal S1 and S2 UPPER EXTREMITIES: 2+ pulses, warm, well-perfused. No cyanosis. No clubbing. No peripheral edema. LOWER EXTREMITIES: 2+ pulses, warm, well-perfused. No calf tenderness. No peripheral edema. Laboratory Results - last 24 hr 03/05/19 16:35 Troponin I < 0.03 Active Medications Generic Name Dose Route Start Last Admin Trade Name Freq PRN Reason Stop Dose Admin Aspirin 325 mg 03/04/19 10:00 03/06/19 09:06 Asa - PO 325 mg DAILY TALYA Administration Atorvastatin Calcium 80 mg 03/04/19 22:00 03/05/19 22:07 Lipitor - PO 80 mg HS TALYA Administration Enoxaparin Sodium 40 mg 03/04/19 10:00 03/06/19 09:06 Lovenox - SQ 40 mg DAILY TALYA Administration Lisinopril 10 mg 03/05/19 08:54 03/06/19 09:06 Prinivil PO 10 mg DAILY TALYA Administration ASSESSMENT/PLAN: 68 year-old male with a PMH significant for HTN, HLD, IBS, and BPH. Admitted for acute CVA. r/o CVA --03/04 MRI brain: acute ischemic changes posterior aspect of left mota radiata; 2 subacute infarcts left posterior temporal lobe; chronic lacunar infarct; chronic microbleed left posterior periventricular white matter --US carotids: no hemodynamically significant stenosis --continue ASA, statin --ECG: sinus rhythm, no known history of afib; daily ECGs; telemetry monitoring; seen and evaluated by cardiology, outpatient extended rhythm monitoring would be beneficial; discussed with patient --continue telemetry --with significant right-sided upper and lower extremity deficits, will need rehab Systolic and diastolic heart failure --03/04 Echo: mild LVH, LV systolic function mildly reduced EF 45%, diastolic dysfunction abnormal relaxation, mild global hypokinesis; RV not well seen; LAE; mild MR, trace TR, moderate AI, trace PI, mild aortic root dilitation --appears euvolemic --no diuretics --seen and evaluated by cardiology, would benefit from outpatient followup for extended monitoring and repeat echo; discussed with patient and family several times Hypertension --BP better controlled on lisinopril 10mg daily --TSH wnl Hyperlipidemia --continue atorvastatin IBS --no acute issues BPH --no acute issues Dispo: Plan is to discharge tomorrow to [facility]. Full code. Visit type - Emergency Visit Emergency Visit: Yes ED Registration Date: 03/03/19 Care time: The patient presented to the Emergency Department on the above date and was hospitalized for further evaluation of their emergent condition. - New Patient This patient is new to me today: No - Critical Care Critical Care patient: No
[2019-03-06] MEDS: ATORVASTATIN CA 80 MG TABLET (FP) PO SCH (21:08)
--- NOTE | 2019-03-07 09:23 | PN ---
Progress Note (short form) - Note Progress Note: 68 year old male history of HTN,HLD,IBS,BPH. Carolynn has unstready gait episode three times so far. First time november, than in february 22 and third time in march 03. which lead him to come to ed. Patient describes as unsteady walking and bumping into things. Neri was moving to right. He denies nay stroke in past or [place] in past. Carolynn had mri it showed left mota radiata acute ischemic infarct, and he has mild right arm and leg weakness, and occaional slurring of speech NEUROLOGICAL EXAMINATION Alert oriented x 3, speech i snormal, neck is supple eomi, pupils , no face asymmetry, there is no nystagmus was seen there is mild right upper and lower extremry weaknes sgrade 5- sensation is normal ct head unremarkable carotid ultrasound is normal mri of brain showed left mota radiata ischemic lesion and chronic old small hemorrhagic lesion Assessment/Plan right sided hemiparesis with left mota radiata acute ischmic lesion, old hemorrhagic lesion, carotid ultrasound unremarkable Plan: continue aspirin and lovenox ( dvt prophylaxis) no need to stop as no acute bleed continue a statin speech /swallow can be obtained yesterday spoken to his to explain nature of his pathology and prongosi Thanking you so much Kory Sofia MD
[2019-03-07] MEDS: ENOXAPARIN NA (PORCINE) 40 MG/0.4 ML DISP.SYRIN SQ SCH (10:44)
[2019-03-07] MEDS: LISINOPRIL 10 MG TABLET (FP) PO SCH (10:44)
[2019-03-07] MEDS: ASPIRIN 325 MG TABLET PO SCH (10:44)
--- NOTE | 2019-03-07 12:35 | CONSULT ---
Admitting History and Physical - Primary Care Physician PCP: Kory Sofia - Admission History of Present Illness: 68 year-old male with a PMH significant for HTN, HLD, IBS, and BPH admitted [facility] for evaluation of unsteady gait. MRI brain shows acute CVA left mota radiata. Pt has been on a reg diet/thin liquids. Pending d/c for acute rehabilitation. Selected Entries 03/06/19 03/06/19 03/06/19 02:00 05:31 09:00 Breakfast Diet Tolerated Lunch Temperature 98.4 F 98.4 F 98.4 F 03/06/19 03/06/19 03/06/19 09:27 13:00 14:00 Breakfast 100% Diet Tolerated Well Well Lunch 100% Temperature 97.7 F 03/06/19 03/06/19 03/07/19 18:00 21:30 01:47 Breakfast Diet Tolerated Lunch Temperature 98.3 F 98.5 F 99.4 F 03/07/19 03/07/19 06:00 09:01 Breakfast 75% Diet Tolerated Well Lunch Temperature 97.8 F Laboratory Tests 03/03/19 18:30 WBC 8.9 History Source: Patient, Family Member Limitations to Obtaining History: No Limitations - Past Medical History [employer]: No: Alzheimer's, CVA, Dementia, Migraine, Multiple Sclerosis, Peripheral Neuropathy, Parkinson's, Seizure, Syncope, TIA, Vertigo, Other Cardiovascular: Yes: HTN, Hyperlipdemia Pulmonary: No: Asthma, Bronchitis, Cancer, COPD, O2 Dependent, Pneumonia, Previously Intubated, Pulmonary Embolus, Pulmonary Fibrosis, Sleep Apnea, Other Gastrointestinal: Yes: Irritable Bowel Disease, Other Hepatobiliary: No: Cirrhosis, Cholelithiasis, Cholecystitis, Choledocholithiasis , Hepatitis A, Hepatitis B, Hepatitis C, Other Renal/: Yes: BPH Heme/Onc: No: Anemia, B12 Deficiency, Bleeding Disorder, Cancer, Current Chemotherapy, Current Radiation Therapy, Hemochromatosis, Hypercoaguable State, Myeloproliferative Synd, Sickle Cell Disease, Sickle Cell Trait, Thrombocytopenia, Other Infectious Disease: No: AIDS, C-Diff, Herpes Zoster, HIV, MRSA, STD's, Tuberculosis, VREF, Other Psych: No: Addictions, Anxiety, Bipolar, Depression, Panic, Psychosis, Schizophrenia, Other Musculoskeletal: No: Bursitis, Chronic low back pain, Hemiparesis, Hemiplegia, Osteoarthritis, Paraplegia, Other Rheumatology: No: Fibromyalgia, Gout, Lupus, Rheumatoid Arthritis, Sarcoidosis, Vasculitis, Other ENT: No: Allergic Rhinitis, Sinusitis, Other Endocrine: No: Y[place]'s Disease, [place]'s Disease, Diabetes Insipidus, Diabetes Mellitus, Hyperparathyroidism, Hyperthyroidism, Hypothyroidism, Osteopenia, SIADH, Other Dermatology: No: Basal Cell, Cellulitis, Eczema, Melanoma, Psoriasis, Squamous Cell, Other - Advance Directives Advance Directives: Yes: Health Care Proxy - Smoking History Smoking history: Never smoked Have you smoked in the past 12 months: No Aproximately how many cigarettes per day: 0 - Alcohol/Substance Use Hx Alcohol Use: No - Social History History of Recent Travel: No History - Admission Reason For Visit: APPENDICULAR ATAXIA - Diagnostics CT Scan: Report Reviewed (ct head unremarkable) MRI: Report Reviewed ( mri of brain showed left mota radiata ischemic lesion and chronic old small hemorrhagic lesion) Other: Report Reviewed (carotid ultrasound is normal) - General Mental Status: Alert and Oriented, Awake and Alert, Able to Follow Commands ( Impulsive. Misses portions of multi-step directives when not attending and with reduced impulse control.) Attention: Distractible, Mild Impairment Ability to Follow Directions: Good (2 step commands. Errors with 3 step/complex commands. Needs cues to focus, slow down, listen to entire commands) Head/Neck Control: WFL - Hearing Hearing: Functional Hearing: Normal Hearing Aide: No With Patient: No Speech Evaluation - Communication Primary Language: [id number] Communication: Yes: Dysarthria Oral Expression Ability: Yes: Mild Impairment - Speech Production Dysarthria: Yes: Flaccid Able to Make Needs Known: Yes: Mildly Impaired Intelligibility: Yes: Mildly Impaired - Speech Characteristics Voice Loudness: Mildly Soft/Quiet Voice Pitch: Yes: Normal Voice Phonatory-based Quality: Yes: Hoarse, Dysphonia (new onset since CVA) Speech Pattern: Impaired Speech Clarity: < 100% Nasal Resonance: Normal Articulation: Yes: Imprecise Rate of Speech: Too Fast Voice, Other Observations: Yes: Progressively Weak Voice, Inadequate Breath Support (Pt reports running out of air with continuous speech) - Language/Auditory Comprehension Follows: Yes: 2 Stage Simple Commands Observation: Able to respond to yes/no queries: Yes, Yes/No Confusion: No, Comprehends Conversational Speech: Yes - Language/Verbal Expression Functional Communication Status: Yes: Mildly Impaired - Memory/Perception buttermaker continuous churn Memory: Yes: WNL Short Term Memory: Yes: WNL (Pt can repeat 6 digits forward. 7 if cued to concentrate and focus) - Swallow Evaluation/Bedside Assessment Current Nutritional Intake: Regular, Thin Liquids Oral Secretions: Yes: WFL Dentition: Yes: Adequate Facial Symmetry at Rest: Facial Droop Right Lingual Movement: Symmetric Lingual Speed of Movement: Reduced Lingual Movement Strgth Against Opposition: Reduced Lingual Movement Characteristics: Normal Velopharyngeal Movement: Normal Laryngeal Movement: Able to Palpate Rate of Intake: Impulsive Bolus Size: Large Labial Seal: WFL Chewing: WFL Oral Prep Time: WFL A-P Transit: WFL Pocketing: None Coughing/Throat Clear: Yes (on 3 oz water test, responsive cough. ) Change in Voice: No Recommendations - Speech Evaluation, Impression/Plan Impression: Dysarthria, Dysphonia (r/o right vocal cord paresis), right facial weakness, suspect Dysphagia with h/o cough on liquids twice weekly premorbidly and cough response on 3 oz water test. Pt reports he has been eating well here. Impulse control deficits. - Disposition [facility] (Pending transfer to [place]) - Dysphagia Impressions/Plan Dysphagia Impressions: Mild Impairment, Risk of Aspiration, Suspect Aspiration ( intermittent? Monitor pulmonary status) *Silent aspiration: cannot be R/O at bedside Dysphagia Treatment Plan: Labial Exercises, Lingual Exercises, Swallowing Exercises, Pharyngeal Resistive Exer, Laryngeal Adduction Exer, Other ( effortful swallow oral/pharyngeal exercise) Recommendations: Modified Barium Swallow (at [place] r/o aspiration. FEES at [place] , if available to assess vocal cord function), Other (Cognitive w/u by speech pathology at [place]. Fairly functional but deficits suspected in higher interllectual functioning tasks.) - Recommendations Diet Consistency: Regular Medication Administration: Whole with water Liquids: Thin Liquids (single sips. avoid continuous drinking)
--- NOTE | 2019-03-07 15:39 | PN ---
Progress Note (short form) - Note Progress Note: s: no cp sob palps dizzy Current Medications Generic Name Dose Route Start Last Admin Trade Name Thu PRN Reason Stop Dose Admin Aspirin 325 mg 03/04/19 10:00 03/07/19 10:44 Asa - PO 325 mg DAILY TALYA Administration Atorvastatin Calcium 80 mg 03/04/19 22:00 03/06/19 21:08 Lipitor - PO 80 mg HS TALYA Administration Enoxaparin Sodium 40 mg 03/04/19 10:00 03/07/19 10:44 Lovenox - SQ 40 mg DAILY TALYA Administration Lisinopril 10 mg 03/05/19 08:54 03/07/19 10:44 Prinivil PO 10 mg DAILY TALYA Administration Vital Signs Period Temp Pulse Resp BP Sys/Ribeiro Pulse Ox Last 24 Hr 97.8 F-99.4 F 55-84 16-19 113-170/77-92 94-97 Constitutional: Yes: No Distress Eyes: Yes: Conjunctiva Clear Neck: Yes: Trachea Midline Respiratory: Yes: CTA Bilaterally Gastrointestinal: Yes: Soft JVD: No Carotid Bruit: No PMI: Non-Displaced Heart Sounds: Yes: S1, S2 (rrr) Edema: No Peripheral Pulses WNL: Yes Neurological: Yes: Weakness (Right sided weakness) CBC, BMP 03/03/19 18:30 03/05/19 13:30 tele: sr, artifact, no vt, vf, or asystole echo 02/2019: lvh, mild dec lvef, global hk, rv tds, mild mr, mild ao root dil, mod ar carotids 02/2019: no sig stenosis Assessment/Plan IMP: Gait instability due to acute CVA Chronic HTN HLD REC: 1. Tele reviewed, there was artifact present, no vt/vf/asystole occurred. Tele remains benign. outpatient extended rhythm monitor would be beneficial given cva. 2. Echo was TDS, showed mildly reduced LVEF, possibly related to acute cva. Would check better quality echo as outpt during office f/u. 3. Cont ASA, high intensity statin for LDL goal 70mg/dl 4. BP parameters as per Neuro: started on Lisinopril. cardiac naranjo stable
--- NOTE | 2019-03-07 17:08 | DS ---
Physical Exam: SUBJECTIVE: Patient seen and examined OBJECTIVE: Vital Signs Period Temp Pulse Resp BP Sys/Ribeiro Pulse Ox Last 24 Hr 97.8 F-99.4 F 55-84 16-19 113-170/77-92 94-97 PHYSICAL EXAM GENERAL: The patient is awake, alert, and fully oriented, in no acute distress. HEAD: Normal with no signs of trauma. EYES: PERRL, extraocular movements intact, sclera anicteric, conjunctiva clear. ENT: Ears normal, nares patent, oropharynx clear without exudates, moist mucous membranes. NECK: Trachea midline, full range of motion, supple. LUNGS: Breath sounds equal, clear to auscultation bilaterally, no wheezes, no crackles, no accessory muscle use. HEART: Regular rate and rhythm, S1, S2 without murmur, rub or gallop. ABDOMEN: Soft, nontender, nondistended, normoactive bowel sounds, no guarding, no rebound, no hepatosplenomegaly, no masses. EXTREMITIES: 2+ pulses, warm, well-perfused, no edema. NEUROLOGICAL: Cranial nerves II through XII grossly intact. Normal speech, gait not observed. PSYCH: Normal mood, normal affect. SKIN: Warm, dry, normal turgor, no rashes or lesions noted. LABS HOSPITAL COURSE: Date of Admission:03/03/19 Date of Discharge: 03/07/19 Pre hospital course 68 year-old male with a PMH significant for HTN, HLD, IBS, and BPH. Presented to the ED for evaluation of unsteady gait. Patient reports his first episode of being unsteady was in November. He felt dizzy for a short period of time, cannot give any further details. The second episode was on February 22 when he was walking his dog. The dog pulled on him and he was unable to control his walking. The third episode started two days ago. He was unsteady walking, leaning toward the right, brushing up against the wall. Today he went to see Dr. Tiffany ontiveros who referred him to the ED. ER course (1) BP 189/87 (2) CT head: no acute process Subsequent hospital course by problem list 68 year-old male with a PMH significant for HTN, HLD, IBS, and BPH. Admitted for acute CVA. r/o CVA --03/04 MRI brain: acute ischemic changes posterior aspect of left mota radiata; 2 subacute infarcts left posterior temporal lobe; chronic lacunar infarct; chronic microbleed left posterior periventricular white matter --US carotids: no hemodynamically significant stenosis --continue ASA, statin --with significant right-sided upper and lower extremity deficits, will need rehab Systolic and diastolic heart failure --03/04 Echo: mild LVH, LV systolic function mildly reduced EF 45%, diastolic dysfunction abnormal relaxation, mild global hypokinesis; RV not well seen; LAE; mild MR, trace TR, moderate AI, trace PI, mild aortic root dilitation --appears euvolemic, not started on diuretics --seen and evaluated by cardiology, would benefit from outpatient followup for extended monitoring and repeat echo; discussed with patient and family several times Hypertension --BP very elevated on admission, started on lisinopril Hyperlipidemia --started on high-dose atorvastatin Minutes to complete discharge: 35 Discharge Summary Problems reviewed: Yes Reason For Visit: APPENDICULAR ATAXIA Current Active Problems Limb ataxia (Acute) Condition: Stable - Instructions Diet, Activity, Other Instructions: The patient will need to continue on daily aspirin, high-dose statin, and lisinopril for control of hypertension. These are all new medications for this patient started during this hopspitalization. Patient should be followed closely by a net fisher for blood pressure management. He should follow up with his primary care provider and with a cardiologst upon discharge home. Referrals: Alfonso Vidal MD [Primary Care Provider] - Disposition: LONG-TERM FACILITY - Home Medications Comprehensive Discharge Medication List: Ambulatory Orders NK [No Known Home Medication] 03/03/19 This patient is new to me today: Yes Date on this admission: 03/07/19 Emergency Visit: Yes ED Registration Date: 03/03/19 Care time: The patient presented to the Emergency Department on the above date and was hospitalized for further evaluation of their emergent condition. Critical Care patient: No - Discharge Referral Referred to [facility] No
[2019-03-07] MEDS: ATORVASTATIN CA 80 MG TABLET (FP) PO SCH (21:13)
--- NOTE | 2019-03-08 09:39 | PN ---
Progress Note, Physician Chief Complaint: Rt sided weakness History of Present Illness: 68 year old male history of HTN,HLD,IBS,BPH. Carolynn has unstready gait episode three times so far. First time november, than in february 22 and third time in 03/03. which lead him to come to ED MRI shows eft coroa radiata infarct , awaiting to be discharge for acute Rehab at [facility]. - Current Medication List Current Medications: Active Medications Aspirin (Asa -) 325 mg PO DAILY [facility] Last Admin: 03/07/19 10:44 Dose: 325 mg Atorvastatin Calcium (Lipitor -) 80 mg PO HS [facility] Last Admin: 03/07/19 21:13 Dose: 80 mg Enoxaparin Sodium (Lovenox -) 40 mg SQ DAILY [facility] Last Admin: 03/07/19 10:44 Dose: 40 mg Lisinopril (Prinivil) 10 mg PO DAILY [facility] Last Admin: 03/07/19 10:44 Dose: 10 mg - Objective Vital Signs: Vital Signs Temperature 97.8 F 03/08/19 06:00 Pulse Rate 64 03/08/19 06:00 Respiratory Rate 18 03/08/19 06:00 Blood Pressure 145/89 03/08/19 06:00 O2 Sat by Pulse Oximetry (%) 97 03/08/19 06:00 Labs: CBC, BMP 03/03/19 18:30 03/05/19 13:30 INR, PTT INR 1.15 (0.82-1.09) 03/03/19 18:30 Problem List - Problems (1) Limb ataxia Assessment/Plan: due to stroke pt evaluted recommonded keyon awaiting bed at [facility] rehab. Problems reviewed: Yes Code(s): R27.0 - ATAXIA, UNSPECIFIED (2) CVA (cerebral vascular accident) Assessment/Plan: cont ASa, statin, optimize Bp control. Problems reviewed: Yes Code(s): I63.9 - CEREBRAL INFARCTION, UNSPECIFIED (3) HTN (hypertension) Code(s): I10 - ESSENTIAL (PRIMARY) HYPERTENSION (4) Hypercholesteremia Assessment/Plan: Cont statin Problems reviewed: Yes Code(s): E78.00 - PURE HYPERCHOLESTEROLEMIA, UNSPECIFIED
[2019-03-08] MEDS: LISINOPRIL 10 MG TABLET (FP) PO SCH (10:52)
[2019-03-08] MEDS: ASPIRIN 325 MG TABLET PO SCH (10:52)
[2019-03-08] MEDS: ENOXAPARIN NA (PORCINE) 40 MG/0.4 ML DISP.SYRIN SQ SCH (10:52)
[2019-03-08] MEDS: ATORVASTATIN CA 80 MG TABLET (FP) PO SCH (21:33)
--- NOTE | 2019-03-09 09:29 | PN ---
Physical Exam: SUBJECTIVE: Patient seen and examined. pt denies LALA, dizziness, blurred or double vision, cp, sob, palpitations, abdominal pain, N/V/D or urinary symptoms. OBJECTIVE: Vital Signs Period Temp Pulse Resp BP Sys/Ribeiro Pulse Ox Last 24 Hr 98.1 F-98.5 F 52-86 16-20 124-150/73-87 95-99 GENERAL: The patient is awake, alert, and fully oriented, in no acute distress. HEAD: Normal with no signs of trauma. EYES: PERRL, extraocular movements intact, sclera anicteric, conjunctiva clear. No ptosis. ENT: Ears normal, nares patent, oropharynx clear without exudates, moist mucous membranes. NECK: Trachea midline, full range of motion, supple. LUNGS: Breath sounds equal, clear to auscultation bilaterally, no wheezes, no crackles, no accessory muscle use. HEART: Regular rate and rhythm, S1, S2 without murmur, rub or gallop. ABDOMEN: Soft, nontender, nondistended, normoactive bowel sounds, no guarding, no rebound, no hepatosplenomegaly, no masses. EXTREMITIES: 2+ pulses, warm, well-perfused, no edema., RT side weakness NEUROLOGICAL: Cranial nerves II through XII grossly intact. Normal speech, gait not observed. PSYCH: Normal mood, normal affect. SKIN: Warm, dry, normal turgor, no rashes or lesions noted Active Medications Generic Name Dose Route Start Last Admin Trade Name Freq PRN Reason Stop Dose Admin Aspirin 325 mg 03/04/19 10:00 03/08/19 10:52 Asa - PO 325 mg DAILY TALYA Administration Atorvastatin Calcium 80 mg 03/04/19 22:00 03/08/19 21:33 Lipitor - PO 80 mg HS TALYA Administration Enoxaparin Sodium 40 mg 03/04/19 10:00 03/08/19 10:52 Lovenox - SQ 40 mg DAILY TALYA Administration Lisinopril 10 mg 03/05/19 08:54 03/08/19 10:52 Prinivil PO 10 mg DAILY TALYA Administration CXR: No acute lung pathology CT Head: No evidence of acute intracranial pathology Echo 02/2019: lvh, mild dec lvef, global hk, rv tds, mild mr, mild ao root dil, mod ar Carotids 02/2019: no significant stenosis MRI of brain showed left mota radiata ischemic lesion and chronic old small hemorrhagic lesion ASSESSMENT/PLAN: 68 year-old male with a PMH significant for HTN, HLD, IBS, and BPH, who presents to Er c/o unstready gait.MRI brain revealed left coroa radiata infarc. Admitted for acute CVA. * Unsteady gait - MRI brain: acute ischemic changes posterior aspect of left mota radiata; 2 subacute infarcts left posterior temporal lobe; chronic lacunar infarct; chronic microbleed left posterior periventricular white matter -US carotids: no hemodynamically significant stenosis -continue ASA, statin - PT eval done, rec Rehab - neuro input appreciated -TSH wnl - Echo 02/2019: mild LVH,mildly reduced LVEF global hk, rv tds, mild mr, mild ao root dil, mod ar -evaluated by cardiology - rec out pt f/u and repeat Echo -appears euvolemic - TURF KEEPER done, rec Diet Consistency: Regular Medication Administration: Whole with water Liquids: Thin Liquids (single sips. avoid continuous drinking) *Hypertension- BP stable -will cont on lisinopril 10mg daily *Hyperlipidemia -continue atorvastatin * Hx of IBS -no acute issues *BPH -no acute issues * F/E/N: Sodium controlled, low fat - replace electrolytes as needed * VTE: Lovenox *Dispo: Awaiting for rehab placement at [place]. Visit type - Emergency Visit Emergency Visit: Yes ED Registration Date: 03/03/19 Care time: The patient presented to the Emergency Department on the above date and was hospitalized for further evaluation of their emergent condition. - New Patient This patient is new to me today: Yes Date on this admission: 03/09/19 - Critical Care Critical Care patient: No
[2019-03-09] MEDS: LISINOPRIL 10 MG TABLET (FP) PO SCH (10:24)
[2019-03-09] MEDS: ASPIRIN 325 MG TABLET PO SCH (10:24)
[2019-03-09] MEDS: ENOXAPARIN NA (PORCINE) 40 MG/0.4 ML DISP.SYRIN SQ SCH (10:24)
--- NOTE | 2019-03-09 11:48 | PN ---
Progress Note (short form) - Note Progress Note: s: no cp sob palps dizzy Current Medications Generic Name Dose Route Start Last Admin Trade Name Thu PRN Reason Stop Dose Admin Aspirin 325 mg 03/04/19 10:00 03/09/19 10:24 Asa - PO 325 mg DAILY TALYA Administration Atorvastatin Calcium 80 mg 03/04/19 22:00 03/08/19 21:33 Lipitor - PO 80 mg HS TALYA Administration Enoxaparin Sodium 40 mg 03/04/19 10:00 03/09/19 10:24 Lovenox - SQ 40 mg DAILY TALYA Administration Lisinopril 10 mg 03/05/19 08:54 03/09/19 10:24 Prinivil PO 10 mg DAILY TALYA Administration Vital Signs Period Temp Pulse Resp BP Sys/Ribeiro Pulse Ox Last 24 Hr 98.1 F-98.5 F 52-86 16-20 124-150/73-87 95-99 Constitutional: Yes: No Distress Eyes: Yes: Conjunctiva Clear Neck: Yes: Trachea Midline Respiratory: Yes: CTA Bilaterally Gastrointestinal: Yes: Soft JVD: No Carotid Bruit: No PMI: Non-Displaced Heart Sounds: Yes: S1, S2 (rrr) Edema: No Peripheral Pulses WNL: Yes Neurological: Yes: Weakness (Right sided weakness) CBC, BMP 03/03/19 18:30 03/05/19 13:30 tele: sr, artifact, no vt, vf, or asystole echo 02/2019: lvh, mild dec lvef, global hk, rv tds, mild mr, mild ao root dil, mod ar carotids 02/2019: no sig stenosis Assessment/Plan IMP: Gait instability due to acute CVA Chronic HTN HLD REC: 1. Tele reviewed, there was artifact present, no vt/vf/asystole occurred. Tele remains benign. outpatient extended rhythm monitor would be beneficial given cva. 2. Echo was TDS, showed mildly reduced LVEF, possibly related to acute cva. Would check better quality echo as outpt during office f/u. 3. Cont ASA, high intensity statin for LDL goal 70mg/dl 4. BP parameters as per Neuro: started on Lisinopril, bp improved, titrate up as needed cardiac naranjo stable
[2019-03-09] MEDS: ATORVASTATIN CA 80 MG TABLET (FP) PO SCH (21:26)
[2019-03-10 07:11] LABS: BASO % 1.3 % (0-2.0); HEMOGLOBIN 16.6 GM/dl (11.7-16.9); LYMPH % 21.5 % (8-40); MCH 31.6 pg (25.7-33.7); MCHC 34.5 g/dl (32.0-35.9); MEAN CELL VOLUME 91.5 fl (80-96); MEAN PLT VOLUME 9.5 fl (7.5-11.1); MONO % 7.7 % (3.8-10.2); NEUT % 66.5 % (42.8-82.8); PLATELET COUNT 181 K/MM3 (134-434); RBC 5.25 M/mm3 (4.00-5.60); RDW 11.9 % (11.9-15.9); WHITE BLOOD COUNT 7.9 K/mm3 (4.0-10.8)
[2019-03-10 07:19] LABS: CALCIUM 8.7 mg/dl (8.5-10); CREATININE 0.9 mg/dl (0.55-1.3); POTASSIUM 3.9 mmol/L (3.5-5.1)
[2019-03-10] MEDS: LISINOPRIL 10 MG TABLET (FP) PO SCH (09:09)
[2019-03-10] MEDS: ENOXAPARIN NA (PORCINE) 40 MG/0.4 ML DISP.SYRIN SQ SCH (09:09)
[2019-03-10] MEDS: ASPIRIN 325 MG TABLET PO SCH (09:09)
[2019-03-10 10:09] VITALS: BP 153/90; PULSE 79
--- NOTE | 2019-03-10 12:23 | DS ---
Physical Exam: SUBJECTIVE: Patient seen and examined at bedside. Feels he is getting stronger with each PT session. Very upbeat. OBJECTIVE: Vital Signs Period Temp Pulse Resp BP Sys/Ribeiro Pulse Ox Last 24 Hr 98.0 F-99.0 F 55-79 16-18 124-153/69-95 95-98 PHYSICAL EXAM GENERAL: The patient is awake, alert, and fully oriented, in no acute distress. LUNGS: Breath sounds equal, clear to auscultation bilaterally, no wheezes, no crackles, no accessory muscle use. HEART: Regular rate and rhythm, S1, S2 ABDOMEN: Soft, nontender, nondistended EXTREMITIES: 2+ pulses, warm, well-perfused, no edema. NEUROLOGICAL: Cranial nerves II through XII grossly intact. Dysarthria improved , RUE and RLE weakness LABS Laboratory Results - last 24 hr 03/10/19 03/10/19 03/10/19 07:01 07:01 07:01 WBC 7.9 RBC 5.25 Hgb 16.6 Hct 48.0 MCV 91.5 MCH 31.6 MCHC 34.5 RDW 11.9 Plt Count 181 MPV 9.5 Absolute Neuts (auto) 5.3 Neutrophils % 66.5 Lymphocytes % 21.5 Monocytes % 7.7 Eosinophils % 3.0 Basophils % 1.3 Sodium 139 Potassium 3.9 Chloride 110 H Carbon Dioxide 22 Anion Gap 7 L BUN 23.0 H Creatinine 0.9 Est GFR (CKD-EPI)AfAm 100.65 Est GFR (CKD-EPI)NonAf 86.84 Random Glucose 92 Calcium 8.7 Creatine Kinase 93 Troponin I < 0.03 HOSPITAL COURSE: Date of Admission:03/03/19 Date of Discharge: 03/10/19 Pre hospital course 68 year-old male with a PMH significant for HTN, HLD, IBS, and BPH. Presented to the ED for evaluation of unsteady gait. Patient reports his first episode of being unsteady was in November. He felt dizzy for a short period of time, cannot give any further details. The second episode was on February 22 when he was walking his dog. The dog pulled on him and he was unable to control his walking. The third episode started two days ago. He was unsteady walking, leaning toward the right, brushing up against the wall. Today he went to see Dr. Androne today who referred him to the ED. ER course (1) BP 189/87 (2) CT head: no acute process Subsequent hospital course by problem list 68 year-old male with a PMH significant for HTN, HLD, IBS, and BPH. Admitted for acute CVA. r/o CVA --03/04 MRI brain: acute ischemic changes posterior aspect of left mota radiata; 2 subacute infarcts left posterior temporal lobe; chronic lacunar infarct; chronic microbleed left posterior periventricular white matter --US carotids: no hemodynamically significant stenosis --treated with ASA, statin --with significant right-sided upper and lower extremity deficits, will need rehab Systolic and diastolic heart failure --03/04 Echo: mild LVH, LV systolic function mildly reduced EF 45%, diastolic dysfunction abnormal relaxation, mild global hypokinesis; RV not well seen; LAE; mild MR, trace TR, moderate AI, trace PI, mild aortic root dilitation --euvolemic, not started on diuretics --seen and evaluated by cardiology, would benefit from outpatient followup for extended monitoring and repeat echo; discussed with patient and family several times Hypertension --BP very elevated on admission, started on lisinopril Hyperlipidemia --started on high-dose atorvastatin Minutes to complete discharge: 35 Discharge Summary Problems reviewed: Yes Reason For Visit: APPENDICULAR ATAXIA Current Active Problems CVA (cerebral vascular accident) (Acute) HTN (hypertension) (Acute) Hypercholesteremia (Acute) Limb ataxia (Acute) Condition: Stable - Instructions Diet, Activity, Other Instructions: The patient will need to continue on daily aspirin, high-dose statin, and lisinopril. Patient should be followed closely by a vat operator for blood pressure management. He should follow up with his primary care provider and with a cardiologst upon discharge home. Referrals: Alfonso Vidal MD [Primary Care Provider] - César Wilson MD [Staff Physician] - Disposition: [facility] - Home Medications Comprehensive Discharge Medication List: Ambulatory Orders Aspirin [ASA -] 325 mg PO DAILY tablet 03/07/19 Atorvastatin Ca [Lipitor] 80 mg PO HS tablet 03/07/19 Lisinopril [Prinivil] 10 mg PO DAILY tablet 03/07/19 This patient is new to me today: No Emergency Visit: Yes ED Registration Date: 03/03/19 Care time: The patient presented to the Emergency Department on the above date and was hospitalized for further evaluation of their emergent condition. Critical Care patient: No - Discharge Referral Referred to [facility] No
[2019-03-10 12:40] VITALS: TEMP 98.4
== END 2019-03-10 13:10 | DRG 65 ==
LOC: SUPCPDRO 17:30 → FER 17:30 → FM/S 19:06
PROVIDERS: ADMIT Internal Medicine; ATTEND Nurse Practitioner Acute Care
DX: I63.9 Cerebral infarction, unspecified (principal); I50.42 Chronic combined systolic (congestive) and diastolic (congestive) heart failure; I69.351 Hemiplegia and hemiparesis following cerebral infarction affecting right dominant side; R27.0 Ataxia, unspecified; E78.5 Hyperlipidemia, unspecified; N40.0 Benign prostatic hyperplasia without lower urinary tract symptoms; K58.9 Irritable bowel syndrome, unspecified; R26.81 Unsteadiness on feet; R29.702 NIHSS score 2; I16.0 Hypertensive urgency; I11.0 Hypertensive heart disease with heart failure
CPT/HCPCS: 36415; 70450-TC; 70551-TC; 71046-TC-FY; 80048; 80053; 80061; 82550; 83036; 83735; 84443; 84484; 85025; 85610; 85730; 93005; 93306-TC; 93880-TC; 97116-GP; 97163-GP; 99285-25